=== PATIENT | female | born 1990 | race Two or more races ===

== ENCOUNTER 2023-08-14 12:24 | Emergency (ER) | payer MEDICAID ==
[~2023-08-14] VITALS: Ht 160 cm; Wt 77.7 kg
[2023-08-14] MEDS ORDERED: ONDANSETRON ODT 4 MG TAB PO ONE (13:30)
[2023-08-14] MEDS ORDERED: KETOROLAC TROMETH 60MG/2ML VIAL IM ONE (13:30)
[2023-08-14 14:08] LABS: Basophils # (auto) 0 10 ^3/uL (0-0.2); Basophils % (auto) 0.6 % (0.0-2.0); Eosinophils # (auto) 0 10 ^3/uL (0-0.8); Eosinophils % (auto) 0.3 % (0.0-7.0); Hematocrit 41.6 % (36.0-46.0); Lymphocytes % (auto) 16.2 % (10.0-50.0); Mean Corpuscular Hemoglobin 28.9 pg (28.0-32.0); Mean Corpuscular Hgb Conc. 33.5 g/dL (32.0-36.0); Mean Corpuscular Volume 86.1 fL (80.0-100.0); Monocytes # (auto) 0.2 10 ^3/uL (0-1.3); Monocytes % (auto) 3.6 % (0.0-12.0); Neutrophils # (auto) 4.9 10 ^3/uL (1.6-8.6); Neutrophils % (auto) 79.3 % (37.0-80.0); Nucleated Red Blood Cells % 0.2 %; Red Blood Cells 4.83 10^6/uL (4.0-5.20); Red Cell Distribution Width 12.9 % (11.8-14.3); White Blood Cell 6.2 10^3/uL (4.4-10.8)
[2023-08-14 14:26] LABS: Alanine Aminotransferase 26 U/L (7-40); Albumin 4.4 g/dL (3.2-4.8); Alkaline Phosphatase 56 U/L (46-116); Anion Gap 5 (5-15); Aspartate Aminotransferase 22 U/L (13-40); BUN/Creatinine Ratio 5.9 (10.0-20.0); Bilirubin, Total 0.4 mg/dL (0.2-1.0); Blood Urea Nitrogen 5 mg/dL (9-23); Calcium 9.2 mg/dL (8.7-10.4); Carbon Dioxide 26 mmol/L (20-30); Chloride 107 mmol/L (98-107); Glucose 105 mg/dL (74-106); Lipase 38 U/L (12-53); Sodium 138 mmol/L (136-145); Total Protein 7.5 g/dL (5.7-8.2)
[2023-08-14 14:56] LABS: Urine Amorphous Crystal FEW /hpf (None Seen); Urine Bacteria MANY /hpf (None Seen); Urine Blood 3+ /uL (Negative); Urine Clarity Clear (Clear); Urine Hyaline Cast FEW /lpf (0 - 2); Urine Protein, UAD 1+ (Negative); Urine Specific Gravity 1.017 (1.001-1.035); Urine Urobilinogen Normal (Negative); Urine WBC 61 /hpf (0 - 5)
[2023-08-14 14:57] LABS: Urine Color Yellow (Yellow)
[2023-08-14] MEDS ORDERED: CIPR-173 PO (15:14)
[2023-08-14] MEDS ORDERED: NAP500T PO (15:14)
[2023-08-14] MEDS ORDERED: ZOFR4T PO (15:14)
[2023-08-14 15:23] VITALS: BP 125/75; PULSE 64; RESP 17; TEMP 97.7; O2SAT 100
== END 2023-08-14 15:25 | disposition home or self-care (01) ==
LOC: ER 12:24
DX: N20.0 Calculus of kidney (principal); N39.0 Urinary tract infection, site not specified; Z90.710 Acquired absence of both cervix and uterus
CPT/HCPCS: 36415; 74176; 80053; 81001; 83690; 85025; 96372; 99285; J1885; Q0162

== ENCOUNTER 2024-01-26 21:28 | Emergency (ER) | payer MEDICAID ==
[~2024-01-26] VITALS: Ht 157.5 cm; Wt 81.4 kg
[~2024-01-26 21:28] MED LIST: CIPR-173 PO; NAP500T PO; ZOFR4T PO
[2024-01-26 21:50] VITALS: BP 140/76; PULSE 70; RESP 18; TEMP 98.4
[2024-01-26] MEDS ORDERED: diphenhdrAMINE HCL 50 MG/1 ML VL IM ONE (22:15)
[2024-01-26 23:40] VITALS: O2SAT 99
[2024-01-27] MEDS: DexAMETHasone SOD PHOS 10MG/1ML VIAL INJ IM ONE (00:18)
== END 2024-01-27 00:53 | disposition home or self-care (01) ==
LOC: ER 21:28
DX: T78.40XA Allergy, unspecified, initial encounter (principal); Z79.1 Long term (current) use of non-steroidal anti-inflammatories (NSAID); Z79.899 Other long term (current) drug therapy; Z90.710 Acquired absence of both cervix and uterus; X58.XXXA Exposure to other specified factors, initial encounter
CPT/HCPCS: 96372; 99283; J1100

== ENCOUNTER 2024-06-19 03:56 | Emergency (ER) | payer MEDICAID ==
[~2024-06-19] VITALS: Ht 160 cm; Wt 81.5 kg
[2024-06-19] MEDS: LET TOPICAL SOLN 5 ML TOP ONE (05:08)
[2024-06-19] MEDS: LIDOCAINE 1% HCL (LOCAL ANESTH.) INJ 20ML MDV ID ONE (05:08)
[2024-06-19 05:42] VITALS: BP 124/57; PULSE 78; RESP 18; TEMP 98.9; O2SAT 100
--- NOTE | 2024-06-19 05:43 | ED.PDOC ---
HPI Comments This is a 33-year-old female patient presents to the ED chief complaint lacerations. Patient states glass broke in front of her face pink pieces cut the tip of her left nose in left eyelid. She notes no glass went into her eye does not have foreign body feeling. She denies numbness, weakness, bleeding controlled at this time. Chief Complaint: Laceration Time Seen by MD: 04:03 Primary Care Provider: Unknown Reviewed Notes: Nurses Notes, Medications, Allergies Allergies: Coded Allergies: NO KNOWN ALLERGIES (Unverified , 08/14/23) Home Meds Active Scripts Ondansetron Odt 4MG Tab (ZOFRAN PO) 4 Mg Tb, 4 MG PO Q8HR PRN, #14 TAB ODT TAB-DISSOLVE IN MOUTH, THEN SWALLOW Prov:BARBARA MEADOWS MD 08/14/23 Naproxen (NAPROSYN TABLET) 500 Mg Tb, 1 TAB PO BID PRN, #20 TAB 0 Refills Prov:BARBARA MEADOWS MD 08/14/23 Ciprofloxacin Hcl (Cipro) 500 Mg Tab, 1 TAB PO BID, #14 TAB Prov:BARBARA MEADOWS MD 08/14/23 Information Source: Patient Mode of Arrival: Ambulatory Complexity: Intermediate Laceration Length (cm): 1 Past Medical History PAST MEDICAL HISTORY: Denies Surgical History: Hysterectomy 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 BUTTER 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 History Family History Family History: Reviewed,noncontributory to illness Social History Smoker: Non-Smoker Alcohol: Denies ETOH Use Drugs: Denies Drug Use Lives In: Home Constitutional: denies: chills, diaphoresis, fatigue, fever, malaise, sweats, w eakness, others Respiratory: denies: cough, hemoptysis, orthopnea, SOB at rest, shortness of breath, SOB with excertion, stridor, wheezing, others Cardiovascular: denies: chest pain, dizzy spells, diaphoresis, Dyspnea on exertion, edema, irregular heart beat, left arm pain, lightheadedness, palpitations, PND, syncope, others Gastrointestinal: denies: abdomen distended, abdominal pain, blood streaked bowels, constipated, diarrhea, dysphagia, difficulty swallowing, hematemesis, melena, nausea, poor appetite, poor fluid intake, rectal bleeding, rectal pain, vomiting, others Genitourinary: denies: abnormal vagina bleeding, burning, dyspareunia, dysuria, flank pain, frequency, hematuria, incontinence, pain, , vagina discharge, urgency, others Neurological: denies: dizziness, fainting, headache, left sided numbness, left sided weakness, numbness, paresthesia, pre-existing deficit, right sided numbne ss, right sided weakness, seizure, speech problems, tingling, tremors, weakness, others Musculoskeletal: denies: back pain, gout, joint pain, joint swelling, muscle pain, muscle stiffness, neck pain, others Integumetry: reports: laceration (1.5 cm laceration to tip of nose. 1 cm laceration to left eyelid.); denies: bruises, change in color, change in hair/nails, dryness, lesions, lumps, rash, wounds, others Allergic/Immunocompromised: denies: Difficulty Healing, Frequent Infections, Hives, Itching, others Hematologic/Lymphatic: denies: anemia, blood clots, easy bleeding, easy bruising, swollen glands, others Endocrine: denies: excessive hunger, excessive sweating, excessive thirst, excessive urination, flushing, intolerance to cold, intolerance to heat, unexplained weight gain, unexplained weight loss, others Psychiatric: denies: anxiety, bipolar disorder, depression, hopeless, panic disorder, schizophrenia, sleepless, suicidal, others Physical Exam General Appearance: No Apparent Distress, Normal HEENT: Pharynx Normal Neck: Full Range of Motion, Non-Tender Respiratory: Lungs Clear, No Respiratory Distress, Normal Breath Sounds Cardiovascular: No Murmur, Normal Peripheral Pulses, Regular Rate/Rhythm Breast Exam: Deferred Gastrointestinal: Non Tender, Soft Genitalia: Deferred Pelvic: Deferred Rectal: Deferred Extremities: Normal capillary refill, Normal inspection, Normal range of motion, Non-tender Musculoskeletal : Apperance: Normal Neurologic: Alert, purification supervisor II-XII nml as Tested, No Motor Deficits, Normal Affect, Normal Mood, No Sensory Deficits Cerebellar Function: Normal Reflexes: Normal Skin: Lacerations (1.5 cm laceration to tip of nose. 1 cm laceration to left eyelid. Bleeding controlled no noted foreign bodies) Lymphatic: No Adenopathy Was a procedure done? Was a procedure done?: Yes Sedation Sedation?: No Informed consent obtained: Yes Laceration Repair : Location Left side tip of nose. Left lateral eyelid Length 1.5 cm laceration on the nose. 1 cm laceration noted left eyebrow Anesthetic: LET, Lidocaine Laceration Repair Prep: Saline, Betadine Laceration Repair Wound Comple: epidermis/dermis repair Laceration Repair: Number of sutures, Simple Informed consent obtained: Yes Risks, benefits, and alternati: Yes (Three absorbable sutures in the nose. Absorbable sutures in the left eyelid) Notes Patient tolerated procedure well minimal blood loss. Differential diagnosis Generic Laceration: Laceration, Avulsion X-Ray, Labs, Meds, VS Vital Signs Date Time Temp Pulse Resp B/P (MAP) Pulse Ox O2 Delivery O2 Flow Rate FiO2 06/19/24 05:42 98.9 78 18 124/57 (79) 100 98.9 06/19/24 05:42 78 18 100 Room Air 06/19/24 04:05 99.0 91 16 122/80 (94) 98 X-Ray, Labs, Meds, VS Comment See procedure note. Advised patient to follow up with her PCP or urgent care for wound re-evaluation in 3-4 days. ER return precautions given. Suture removal not needed absorbable sutures used. ER return precautions given. Patient indicated understanding and agrees with discharge plan of care. Time of 1ST Reevaluation: 05:42 Reevaluation 1ST: Improved Patient Education/Counseling: Diagnosis, Treatment, Prognosis, Need For Follow Up Family Education/Counseling: No Family Present Departure 1 Departure Time of Disposition: 05:42 Impression: Primary Impression: Laceration Disposition: 01 HOME / SELF CARE / HOMELESS Condition: Stable Discharged With: Self Critical Care Note Critical Care Time?: No Stability Stability form required: BRANDIN Daniels Jun 19, 2024 05:43
== END 2024-06-19 06:17 | disposition home or self-care (01) ==
LOC: ER 03:56
DX: S01.21XA Laceration without foreign body of nose, initial encounter (principal); S01.112A Laceration without foreign body of left eyelid and periocular area, initial encounter; Z90.710 Acquired absence of both cervix and uterus; Z79.899 Other long term (current) drug therapy; W25.XXXA Contact with sharp glass, initial encounter; Y93.89 Activity, other specified; Y92.89 Other specified places as the place of occurrence of the external cause; Y99.8 Other external cause status
CPT/HCPCS: 12011; 99282; J2003

== ENCOUNTER 2024-06-28 09:50 | Emergency (ER) | payer MEDICAID ==
[~2024-06-28] VITALS: Ht 160 cm; Wt 81.6 kg
[2024-06-28 10:28] VITALS: BP 155/93; PULSE 65; RESP 16; TEMP 97.8; O2SAT 100
--- NOTE | 2024-06-28 11:41 | ED.PDOC ---
History of Present Illness HPI Comments This is a 33-year-old female who comes in with chief complaint of needing sutures removed. The patient has suffered lacerations to her nasal area and left facial area on 06/18. The patient denies any other complaints at this time. The patient states that she is here for sutures to be removed. Chief Complaint: Wound Check Time Seen by MD: 10:09 Primary Care Provider: Unknown Reviewed Notes: Nurses Notes, Medications, Allergies (No allergies to medications) Allergies: Coded Allergies: NO KNOWN ALLERGIES (Unverified , 08/14/23) Home Meds Active Scripts Ondansetron Odt 4MG Tab (ZOFRAN PO) 4 Mg Tb, 4 MG PO Q8HR PRN, #14 TAB ODT TAB-DISSOLVE IN MOUTH, THEN SWALLOW Prov:BARBARA MEADOWS MD 08/14/23 Naproxen (NAPROSYN TABLET) 500 Mg Tb, 1 TAB PO BID PRN, #20 TAB 0 Refills Prov:BARBARA MEADOWS MD 08/14/23 Ciprofloxacin Hcl (Cipro) 500 Mg Tab, 1 TAB PO BID, #14 TAB Prov:BARBARA MEADOWS MD 08/14/23 Information Source: Patient Mode of Arrival: Ambulatory Severity: Mild Timing: Days Duration: Since onset Prehospital treatment: None Associated signs and symptoms No associated symptoms of chest pain or shortness for breath Past Medical History PAST MEDICAL HISTORY: Denies Surgical History: Hysterectomy EDUCATION ADVISER History: No Pertinent EDUCATION ADVISER History Family History Family History: Reviewed,noncontributory to illness Social History Smoker: Non-Smoker Alcohol: Occasionally Drugs: Denies Drug Use Lives In: Home Constitutional: denies: chills, diaphoresis, fatigue, fever, malaise, sweats, weakness, others EENTM: denies: blurred vision, double vision, ear bleeding, ear discharge, ear drainage, ear pain, ear ringing, eye pain, eye redness, hearing loss, mouth pain, mouth swelling, nasal discharge, nose bleeding, nose congestion, nose pain, photophobia, tearing, throat pain, throat swelling, voice changes, others Respiratory: denies: cough, hemoptysis, orthopnea, SOB at rest, shortness of breath, SOB with excertion, stridor, wheezing, others Cardiovascular: denies: chest pain, dizzy spells, diaphoresis, Dyspnea on exertion, edema, irregular heart beat, left arm pain, lightheadedness, palpitations, PND, syncope, others Gastrointestinal: denies: abdomen distended, abdominal pain, blood streaked bowels, constipated, diarrhea, dysphagia, difficulty swallowing, hematemesis, melena, nausea, poor appetite, poor fluid intake, rectal bleeding, rectal pain, vomiting, others Genitourinary: denies: abnormal vagina bleeding, burning, dyspareunia, dysuria, flank pain, frequency, hematuria, incontinence, pain, , vagina discharge, urgency, others Neurological: denies: dizziness, fainting, headache, left sided numbness, left sided weakness, numbness, paresthesia, pre-existing deficit, right sided numbness, right sided weakness, seizure, speech problems, tingling, tremors, weakness, others Musculoskeletal: denies: back pain, gout, joint pain, joint swelling, muscle pain, muscle stiffness, neck pain, others Integumetry: reports: others (Sutures in place to the left nasal area and left of the eye); denies: bruises, change in color, change in hair/nails, dryness, laceration, lesions, lumps, rash, wounds Allergic/Immunocompromised: denies: Difficulty Healing, Frequent Infections, Hives, Itching, others Hematologic/Lymphatic: denies: anemia, blood clots, easy bleeding, easy bruising, swollen glands, others Endocrine: denies: excessive hunger, excessive sweating, excessive thirst, excessive urination, flushing, intolerance to cold, intolerance to heat, unexplained weight gain, unexplained weight loss, others Psychiatric: denies: anxiety, bipolar disorder, depression, hopeless, panic disorder, schizophrenia, sleepless, suicidal, others Physical Exam General Appearance: No Apparent Distress HEENT: Normal ENT Inspection, Pharynx Normal, TMs Normal Neck: Full Range of Motion, Non-Tender, Normal, Normal Inspection Respiratory: Chest Non-Tender, Lungs Clear, No Accessory Muscle Use, No Respiratory Distress, Normal Breath Sounds Cardiovascular: No Edema, No JVD, No Murmur, No Gallop, Normal Peripheral Pulses, Regular Rate/Rhythm Breast Exam: Deferred Gastrointestinal: No Organomegaly, Non Tender, No Pulsatile Mass, Normal Bowel Sounds, Soft Genitalia: Deferred Pelvic: Deferred Rectal: Deferred Extremities: No calf tenderness, Normal capillary refill, Normal inspection, Normal range of motion, Non-tender, No pedal edema Musculoskeletal : Apperance: Normal Neurologic: Alert, dross puller II-XII nml as Tested, No Motor Deficits, Normal Affect, Normal Mood, No Sensory Deficits Cerebellar Function: Normal Reflexes: Normal Skin: Dry, Normal Color, Warm, Other (Sutures in place to the facial area) Lymphatic: No Adenopathy Was a procedure done? Was a procedure done?: No Differential Dx Considerations may include: Suture removal, laceration X-Ray, Labs, Meds, VS Vital Signs Date Time Temp Pulse Resp B/P (MAP) Pulse Ox O2 Delivery O2 Flow Rate FiO2 06/28/24 10:28 65 16 100 Room Air 06/28/24 10:28 97.8 65 16 155/93 (113) 100 97.8 06/28/24 10:14 97.8 65 16 155/93 (113) 100 At this time, the patient was being discharged with a diagnosis of suture removal The sutures were removed without any complications The patient will follow up with the primary care doctor The patient will return to the emergency department's condition worsens. Time of 1ST Reevaluation: 11:40 Reevaluation 1ST: Improved Patient Education/Counseling: Diagnosis, Treatment, Prognosis, Need For Follow Up Family Education/Counseling: No Family Present Departure 1 Departure Time of Disposition: 11:40 Impression: Primary Impression: Visit for suture removal Disposition: 01 HOME / SELF CARE / HOMELESS Condition: Fair Discharged With: Self Critical Care Note Critical Care Time?: No Stability Stability form required: No Heart Score Heart Score: Heart Score Response (Comments) Value History N/A 0 EKG N/A 0 Age N/A 0 Risk Factors N/A 0 Troponin N/A 0 Total 0 MARK VEGA MD Jun 28, 2024 11:41
== END 2024-06-28 11:41 | disposition home or self-care (01) ==
LOC: ER 09:50
DX: S01.81XD Laceration without foreign body of other part of head, subsequent encounter (principal); Z48.02 Encounter for removal of sutures; Z90.710 Acquired absence of both cervix and uterus; Z79.899 Other long term (current) drug therapy; X58.XXXD Exposure to other specified factors, subsequent encounter

== ENCOUNTER 2024-07-16 01:51 | Emergency (ER) | payer MEDICAID ==
[~2024-07-16] VITALS: Ht 160 cm; Wt 78.9 kg
[2024-07-16 04:00] VITALS: BP 120/81; PULSE 75; RESP 17; TEMP 98.2; O2SAT 100
[2024-07-16] MEDS ORDERED: CLOT1CRE51 EXT (04:22)
--- NOTE | 2024-07-16 04:22 | ED.PDOC ---
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 Patient states rash started 3 days ago to her rectal perineal area she also reports white vaginal discharge. Notes possible exposure to STD. Denies fevers, chills, nausea, vomiting, vaginal bleeding spotting of . Chief Complaint: Rash Time Seen by MD: 01:55 Reviewed Notes: Nurses Notes, Medications, Allergies Allergies: Coded Allergies: NO KNOWN ALLERGIES (Unverified , 08/14/23) Home Meds Active Scripts Azithromycin (Azithromycin) 500 Mg Tab, 2 TAB PO ONCE for 1 Day, #2 TAB Prov:BRANDIN WORTHINGTON 07/16/24 Clotrimazole (Clotrimazole) 1 % Cre, 1 APPLIC EXT BID for 7 Days, #15 GRAMS Prov:BRANDIN WORTHINGTON 07/16/24 Ondansetron Odt 4MG Tab (ZOFRAN PO) 4 Mg Tb, 4 MG PO Q8HR PRN, #14 TAB ODT TAB-DISSOLVE IN MOUTH, THEN SWALLOW Prov:BARBARA MEADOWS MD 08/14/23 Naproxen (NAPROSYN TABLET) 500 Mg Tb, 1 TAB PO BID PRN, #20 TAB 0 Refills Prov:BARBARA MEADOWS MD 08/14/23 Ciprofloxacin Hcl (Cipro) 500 Mg Tab, 1 TAB PO BID, #14 TAB Prov:BARBARA MEADOWS MD 08/14/23 Past Medical History PAST MEDICAL HISTORY: Denies Surgical History: Hysterectomy 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 SOURCING MANAGER 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: No 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 SOURCING MANAGER History Family History Family History: Reviewed,noncontributory to illness Social History Smoker: Non-Smoker Alcohol: Occasionally Drugs: Denies Drug Use Lives In: Home Constitutional: denies: chills, diaphoresis, fatigue, fever, malaise, sweats, weakness, others EENTM: denies: blurred vision, double vision, ear bleeding, ear discharge, ear drainage, ear pain, ear ringing, eye pain, eye redness, hearing loss, mouth pain, mouth swelling, nasal discharge, nose bleeding, nose congestion, nose p ain, photophobia, tearing, throat pain, throat swelling, voice changes, others Respiratory: denies: cough, hemoptysis, orthopnea, SOB at rest, shortness of breath, SOB with excertion, stridor, wheezing, others Cardiovascular: denies: chest pain, dizzy spells, diaphoresis, Dyspnea on exertion, edema, irregular heart beat, left arm pain, lightheadedness, palpitations, PND, syncope, others Gastrointestinal: denies: abdomen distended, abdominal pain, blood streaked bowels, constipated, diarrhea, dysphagia, difficulty swallowing, hematemesis, melena, nausea, poor appetite, poor fluid intake, rectal bleeding, rectal pain, vomiting, others Genitourinary: reports: vagina discharge; denies: abnormal vagina bleeding, burning, dyspareunia, dysuria, flank pain, frequency, hematuria, incontinence, pain, , urgency, others Neurological: denies: dizziness, fainting, headache, left sided numbness, left sided weakness, numbness, paresthesia, pre-existing deficit, right sided numbness, right sided weakness, seizure, speech problems, tingling, tremors, weakness, others Musculoskeletal: denies: back pain, gout, joint pain, joint swelling, muscle pain, muscle stiffness, neck pain, others Integumetry: denies: bruises, change in color, change in hair/nails, dryness, laceration, lesions, lumps, rash, wounds, others Allergic/Immunocompromised: denies: Difficulty Healing, Frequent Infections, Hives, Itching, others Hematologic/Lymphatic: denies: anemia, blood clots, easy bleeding, easy bruising, swollen glands, others Endocrine: denies: excessive hunger, excessive sweating, excessive thirst, excessive urination, flushing, intolerance to cold, intolerance to heat, unexpl ained weight gain, unexplained weight loss, others Psychiatric: denies: anxiety, bipolar disorder, depression, hopeless, panic disorder, schizophrenia, sleepless, suicidal, others Physical Exam General Appearance: No Apparent Distress, Normal HEENT: Pharynx Normal Neck: Full Range of Motion, Non-Tender Respiratory: Lungs Clear, No Respiratory Distress, Normal Breath Sounds Cardiovascular: No Murmur, Normal Peripheral Pulses, Regular Rate/Rhythm Breast Exam: Deferred Gastrointestinal: Non Tender, Soft Genitalia: Deferred Pelvic: Discharge (White been vaginal discharge), No cerv. Motion Tender Rectal: Deferred Extremities: No calf tenderness, Normal capillary refill, Normal inspection, Normal range of motion, Non-tender, No pedal edema Musculoskeletal : Apperance: Normal Neurologic: Alert, power barker operator II-XII nml as Tested, No Motor Deficits, Normal Affect, Normal Mood, No Sensory Deficits Cerebellar Function: Normal Reflexes: Normal Skin: Dry, Normal Color, Rash (Erythemic raw rash noted to perineum area to the gluteal folds), Warm Lymphatic: No Adenopathy Was a procedure done? Was a procedure done?: Yes Sedation Sedation?: No Informed consent obtained: Yes Other Procedure Informed consent obtained: Yes Risks, benefits, and alternati: Yes X-Ray, Labs, Meds, VS Vital Signs Date Time Temp Pulse Resp B/P (MAP) Pulse Ox O2 Delivery O2 Flow Rate FiO2 07/16/24 04:00 75 17 100 Room Air 07/16/24 04:00 98.2 75 17 120/81 (94) 100 98.2 07/16/24 02:13 98.2 80 16 143/75 (97) 99 Lab Test 07/16/24 04:43 Range/Units Urine Color Pending Urine Clarity Pending Urine pH Pending Urine Specific [place] Pending Urine Protein Pending Urine Ketones Pending Urine Blood Pending Urine Nitrite Pending Urine Bilirubin Pending Urine Urobilinogen Pending Urine Leukocyte Esterase Pending Urine RBC Pending Urine WBC Pending Urine Squamous Epithelial Cells Pending Urine Bacteria Pending Urine Glucose Pending Current Medications Medications (Trade) Dose Ordered Sig/Laura Route Start Time Stop Time Status Last Admin Fluconazole (Diflucan Tablet) 200 mg ONCE ONCE PO 07/16/24 04:30 07/16/24 04:31 DC 07/16/24 04:29 Time of 1ST Reevaluation: 04:22 Reevaluation 1ST: Unchanged Patient Education/Counseling: Diagnosis, Treatment, Prognosis, Need For Follow Up Family Education/Counseling: No Family Present Departure 1 Departure Time of Disposition: 04:22 Impression: Primary Impression: Possible exposure to STD Additional Impression: Vaginitis Qualified Codes: N76.0 - Acute vaginitis Disposition: 01 HOME / SELF CARE / HOMELESS Condition: Stable e-Prescriptions Azithromycin (Azithromycin) 500 Mg Tab 2 TAB PO ONCE for 1 Day, #2 TAB Prov: BRANDIN WORTHINGTON 07/16/24 Clotrimazole (Clotrimazole) 1 % Cre 1 APPLIC EXT BID for 7 Days, #15 GRAMS Prov: BRANDIN WORTHINGTON 1/2/25 Discharged With: Self Critical Care Note Critical Care Time?: No Stability Stability form required: BRANDIN Daniels Jul 16, 2024 04:22
[2024-07-16] MEDS: FLUCONAZOLE 100 MG TAB PO ONE (04:29)
[2024-07-16] MEDS ORDERED: cefTRIAXone SOD 1,000 MG VL IM ONE (04:30)
[2024-07-16] MEDS ORDERED: AZITHROMYCIN 250 MG TAB PO ONE (04:30)
[2024-07-16 04:44] LABS: Urine Bacteria None Seen /hpf (None Seen)
[2024-07-16] MEDS ORDERED: AZIT500T66 PO (04:45)
[2024-07-16 05:09] LABS: Urine Blood Negative /uL (Negative); Urine Clarity Clear (Clear); Urine Color Light-Yellow (Yellow); Urine Protein, UAD Negative (Negative); Urine Specific Gravity 1.018 (1.001-1.035); Urine Squamous Epithelial Cell FEW /hpf (<5); Urine Urobilinogen Normal (Negative); Urine WBC 2 /hpf (0 - 5); Urine pH 5.5 (5.0-9.0)
== END 2024-07-16 04:53 | disposition home or self-care (01) ==
LOC: ER 01:51
DX: N76.0 Acute vaginitis (principal); Z20.2 Contact with and (suspected) exposure to infections with a predominantly sexual mode of transmission; Z90.710 Acquired absence of both cervix and uterus; Z79.899 Other long term (current) drug therapy
CPT/HCPCS: 81001; J0696

== ENCOUNTER 2024-07-22 17:53 | Emergency (ER) | payer MEDICAID, OTHER ==
[~2024-07-22] VITALS: Ht 160 cm; Wt 79.0 kg
[~2024-07-22 17:53] MED LIST changes: +CLOT1CRE51 EXT
[2024-07-22 18:15] VITALS: BP 125/43; PULSE 75; RESP 16; O2SAT 97
[2024-07-22 20:09] LABS: Urine Bacteria None Seen /hpf (None Seen)
--- NOTE | 2024-07-22 20:51 | ED.PDOC ---
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 PATIENT STATES THAT SHE HAS BEEN EXPERIENCING A "DARK" 5/10 ITCHY/BURNING VAGINAL RASH WITH ASSOCIATED CREAMY WHITE VAGINAL DISCHARGE X 9 DAYS. NOTES SHE WAS SEEN BY A PROVIDER 9 DAYS AGO AT ONSET OF SYMPTOMS AND WAS GIVEN "2 SHOTS" ALONG WITH "A FULL PANEL" OF STD TESTS DONE AT THAT TIME THAT CAME BACK UNREMARKABLE. NOTES THAT SHE WAS ALSO SEEN IN ER HERE 6 DAYS AGO FOR HER SYMPT OMS AND WAS DIAGNOSED WITH A YEAST INFECTION AT THAT TIME AND WAS GIVEN FLUCONAZOLE ALONG WITH PRESCRIBED A TOPICAL CREAM THAT SHE STATES HAS GIVEN HER SOME RELIEF BUT HIS CONCERN THAT SHE STILL IS EXPERIENCING SYMPTOMS PROMPTING HER TO COME BACK TO ER FOR FURTHER EVALUATION. DENIES BEING SEXUALLY ACTIVE SINCE ONSET OF SYMPTOMS. DENIES FEVER, BODY ACHES, CHILLS, FATIGUE, NIGHT SWEATS, ABDOMINAL/PELVIC PAIN, BACK/FLANK PAIN, FURTHER CHANGES IN URINATION OR ANY FURTHER SYMPTOMS/COMPLAINTS Chief Complaint: Vaginal Discharge Time Seen by MD: 18:59 Primary Care Provider: UNKNOWN Reviewed Notes: Nurses Notes, Medications, Allergies Allergies: Coded Allergies: NO KNOWN ALLERGIES (Unverified , 08/14/23) Home Meds Active Scripts Clotrimazole (Clotrimazole) 1 % Cre, 1 APPLIC EXT BID for 7 Days, #15 GRAMS Prov:BRANDIN WORTHINGTON 07/16/24 Ondansetron Odt 4MG Tab (ZOFRAN PO) 4 Mg Tb, 4 MG PO Q8HR PRN, #14 TAB ODT TAB-DISSOLVE IN MOUTH, THEN SWALLOW Prov:BARBARA MEADOWS MD 08/14/23 Naproxen (NAPROSYN TABLET) 500 Mg Tb, 1 TAB PO BID PRN, #20 TAB 0 Refills Prov:BARBARA MEADOWS MD 08/14/23 Ciprofloxacin Hcl (Cipro) 500 Mg Tab, 1 TAB PO BID, #14 TAB Prov:BARBARA MEADOWS MD 08/14/23 Discontinued Scripts Metronidazole (Metronidazole) 500 Mg Tab, 500 MG PO BID for 7 Days, #14 TAB 0 Refills Prov:ADÁN KIM 07/22/24 Azithromycin (Azithromycin) 500 Mg Tab, 2 TAB PO ONCE for 1 Day, #2 TAB Prov:BRANDIN WORTHINGTON 1/2/25 Information Source: Patient Past Medical History PAST MEDICAL HISTORY: Denies Surgical History: Hysterectomy MANAGER FOOD SAFETY History: No Pertinent MANAGER FOOD SAFETY History Family History Family History: Unknown Social History Smoker: Non-Smoker Alcohol: Occasionally Drugs: Denies Drug Use Lives In: Home Constitutional: denies: chills, diaphoresis, fatigue, fever, malaise, sweats, w eakness, others EENTM: denies: blurred vision, double vision, ear bleeding, ear discharge, ear drainage, ear pain, ear ringing, eye pain, eye redness, hearing loss, mouth pain, mouth swelling, nasal discharge, nose bleeding, nose congestion, nose pain, photophobia, tearing, throat pain, throat swelling, voice changes, others Respiratory: denies: cough, hemoptysis, orthopnea, SOB at rest, shortness of breath, SOB with excertion, stridor, wheezing, others Cardiovascular: denies: chest pain, dizzy spells, diaphoresis, Dyspnea on exertion, edema, irregular heart beat, left arm pain, lightheadedness, palpitations, PND, syncope, others Gastrointestinal: denies: abdomen distended, abdominal pain, blood streaked bowels, constipated, diarrhea, dysphagia, difficulty swallowing, hematemesis, melena, nausea, poor appetite, poor fluid intake, rectal bleeding, rectal pain, vomiting, others Genitourinary: reports: others ( STATED IN HPI) Neurological: denies: dizziness, fainting, headache, left sided numbness, left sided weakness, numbness, paresthesia, pre-existing deficit, right sided numbness, right sided weakness, seizure, speech problems, tingling, tremors, weakness, others Musculoskeletal: denies: back pain, gout, joint pain, joint swelling, muscle pain, muscle stiffness, neck pain, others Integumetry: reports: others ( STATED IN HPI) Allergic/Immunocompromised: denies: Difficulty Healing, Frequent Infections, Hives, Itching, others Hematologic/Lymphatic: denies: anemia, blood clots, easy bleeding, easy bruisi ng, swollen glands, others Endocrine: denies: excessive hunger, excessive sweating, excessive thirst, exce ssive urination, flushing, intolerance to cold, intolerance to heat, unexplained weight gain, unexplained weight loss, others Psychiatric: denies: anxiety, bipolar disorder, depression, hopeless, panic disorder, schizophrenia, sleepless, suicidal, others Physical Exam General Appearance: No Apparent Distress, Obese HEENT: PERRL/EOMI, Pharynx Normal Neck: Full Range of Motion, Non-Tender, Normal Respiratory: Chest Non-Tender, Lungs Clear, No Accessory Muscle Use, No Respiratory Distress, Normal Breath Sounds Cardiovascular: No Murmur, No Gallop, Regular Rate/Rhythm Breast Exam: Deferred Gastrointestinal: NOT DONE Genitalia: Deferred Pelvic: Other (NO RASH/SKIN CHANGES APPRECIATED. NO VAGINAL DISCHARGE NOTED. PELVIC EXAMINATION-UNREMARKABLE) Rectal: Deferred Extremities: Normal capillary refill, Normal range of motion Neurologic: Alert, No Motor Deficits, Normal Affect, Normal Mood, No Sensory Deficits Cerebellar Function: Normal Reflexes: Normal Skin: Dry, Warm Peripheral Pulses: 2+ Radial (R), 2+ Radial (L), 2+ Brachial (R), 2+ Brachial (L) Lymphatic: No Adenopathy Was a procedure done? Was a procedure done?: No Sedation Sedation?: No Differential Diagnosis (MANAGER FOOD SAFETY) Vaginal Bleeding: PID Vaginal Discharge: UTI, Other (STD) X-Ray, Labs, Meds, VS Vital Signs Date Time Temp Pulse Resp B/P (MAP) Pulse Ox O2 Delivery O2 Flow Rate FiO2 07/22/24 18:15 98.8 75 16 125/43 (70) 97 Lab Test 07/22/24 21:10 07/22/24 20:01 Range/Units Vaginal WBC (Wet Prep) Rare Vaginal RBC (Wet Prep) None seen Vaginal Epithelial Cells (Wet Prep) None seen Vaginal Bacteria (Wet Prep) None seen Vaginal Trichomonas (Wet Prep) Not present Vaginal Yeast (Wet Prep) None seen Vaginal Clue Cells (Wet Prep) None seen Urine Color Light-yellow Yellow Urine Clarity Turbid H Clear Urine pH 6.0 5.0-9.0 Urine Specific Mcnary 1.025 1.001-1.035 Urine Protein Negative Negative Urine Ketones Trace Negative Urine Blood Negative Negative /uL Urine Nitrite Negative Negative Urine Bilirubin Negative Negative Urine Urobilinogen 4 H Negative mg/dL Urine Leukocyte Esterase Negative Negative /uL Urine RBC 1 0 - 4 /hpf Urine WBC 1 0 - 5 /hpf Urine Squamous Epithelial Cells Mod <5 /hpf Urine Bacteria None seen None Seen /hpf Urine Mucus Few None Seen Urine Glucose Normal Normal mg/dL Urine Test Negative Negative Chlamydia trachomatis (OSIEL) Pending Neisseria gonorrhoeae (OSIEL) Pending URINE REVIEWED-NEGATIVE URINALYSIS REVIEWED WITHOUT ANY SIGNIFICANT ABNORMALITIES WET MOUNT REVIEWED-UNREMARKABLE GONORRHEA/CHLAMYDIA AMPLIFICATION TEST ORDERED ADVISED TO FOLLOW UP WITH PCP AND LEAD TEACHER IN 1-2 DAYS PATIENT VERBALIZED UNDERSTANDING AND AGREEABLE WITH CURRENT PLAN OF CARE ADVISED TO RETURN TO ER IMMEDIATELY IF SYMPTOMS WORSEN Time of 1ST Reevaluation: 20:50 Reevaluation 1ST: N/A Patient Education/Counseling: Diagnosis, Treatment, Prognosis, Need For Follow Up Family Education/Counseling: No Family Present Departure 1 Departure Time of Disposition: 22:12 Impression: Primary Impression: Vaginitis Qualified Codes: N76.0 - Acute vaginitis Disposition: HOME / SELF CARE / HOMELESS Condition: Stable e-Prescriptions Clotrimazole (Clotrimazole) 1 % Cre 1 APPLIC EXT BID for 7 Days, #15 GRAMS Prov: ADÁN KIM 07/22/24 Discharged With: Self Critical Care Note Critical Care Time?: No Stability Stability form required: No Heart Score Heart Score: Heart Score Response (Comments) Value History N/A 0 EKG N/A 0 Age N/A 0 Risk Factors N/A 0 Troponin N/A 0 Total 0 ADÁN KIM Jul 22, 2024 20:51
[2024-07-22] MEDS ORDERED: MET500T PO (21:12)
[2024-07-22 21:18] LABS: Urine Blood Negative /uL (Negative); Urine Clarity Turbid (Clear); Urine Color Light-Yellow (Yellow); Urine Mucus FEW (None Seen); Urine Protein, UAD Negative (Negative); Urine Specific Gravity 1.025 (1.001-1.035); Urine Squamous Epithelial Cell MOD /hpf (<5); Urine Urobilinogen 4 mg/dL (Negative); Urine WBC 1 /hpf (0 - 5)
[2024-07-22 22:07] LABS: Vaginal Bacteria None Seen; Vaginal Trichomonas Not Present
[2024-07-22 22:08] LABS: Vaginal Clue Cells None Seen; Vaginal Epithelial Cells None Seen
[2024-07-22] MEDS ORDERED: CLOT1CRE51 EXT (22:24)
[2024-07-24 14:06] LABS: Chlamydia Trachomatis, NAA Negative (Negative); Neisseria gonorrhoeae, NAA Negative (Negative)
== END 2024-07-22 22:25 | disposition home or self-care (01) ==
LOC: ER 17:53
DX: N76.0 Acute vaginitis (principal); Z32.02 Encounter for pregnancy test, result negative; Z90.710 Acquired absence of both cervix and uterus; Z79.899 Other long term (current) drug therapy
CPT/HCPCS: 81001; 81025; 87210

== ENCOUNTER 2024-08-12 08:21 | Emergency (ER) | payer MEDICAID ==
[~2024-08-12] VITALS: Ht 177.8 cm; Wt 79.5 kg
[2024-08-12] MEDS ORDERED: GENT0.3S10 EACHEYE (08:43)
--- NOTE | 2024-08-12 08:43 | ED.PDOC ---
History of Present Illness HPI Comments 33-year-old female came in because of irritation in her eyes for the past two weeks. She is able to do her usual duties. Denies any head trauma. Denies headache dizziness. Denies any other symptoms. Chief Complaint: Eye Problem Time Seen by MD: 08:30 Primary Care Provider: UNKNOWN Reviewed Notes: Nurses Notes, Medications, Allergies Allergies: Coded Allergies: NO KNOWN ALLERGIES (Unverified , 08/14/23) Home Meds Active Scripts Gentamicin Sulfate (Gentamicin Sulfate) 0.3 % Sima, 1 DROP EACHEYE QID PRN for 5 Days, #5 ML Prov:DIANA ZAPATA MD 08/12/24 Clotrimazole (Clotrimazole) 1 % Cre, 1 APPLIC EXT BID for 7 Days, #15 GRAMS Prov:ADÁN KIM 07/22/24 Ondansetron Odt 4MG Tab (ZOFRAN PO) 4 Mg Tb, 4 MG PO Q8HR PRN, #14 TAB ODT TAB-DISSOLVE IN MOUTH, THEN SWALLOW Prov:BARBARA MEADOWS MD 08/14/23 Naproxen (NAPROSYN TABLET) 500 Mg Tb, 1 TAB PO BID PRN, #20 TAB 0 Refills Prov:BARBARA MEADOWS MD 08/14/23 Ciprofloxacin Hcl (Cipro) 500 Mg Tab, 1 TAB PO BID, #14 TAB Prov:BARBARA MEADOWS MD 08/14/23 Information Source: Patient Mode of Arrival: Ambulatory Severity: Mild Timing: Weeks Duration: Since onset Past Medical History PAST MEDICAL HISTORY: Denies Surgical History: Hysterectomy COMPONENT ENGINEER History: No Pertinent COMPONENT ENGINEER History Family History Family History: Unknown Social History Smoker: Non-Smoker Alcohol: Occasionally Drugs: Denies Drug Use Lives In: Home Constitutional: denies: chills, diaphoresis, fatigue, fever, malaise, sweats, weakness, others EENTM: reports: others (Eye irritation); denies: blurred vision, double vision, ear bleeding, ear discharge, ear drainage, ear pain, ear ringing, eye pain, eye redness, hearing loss, mouth pain, mouth swelling, nasal discharge, nose bleeding, nose congestion, nose pain, photophobia, tearing, throat pain, throat swelling, voice changes Respiratory: denies: cough, hemoptysis, orthopnea, SOB at rest, shortness of breath, SOB with excertion, stridor, wheezing, others Cardiovascular: denies: chest pain, dizzy spells, diaphoresis, Dyspnea on exertion, edema, irregular heart beat, left arm pain, lightheadedness, palpitations, PND, syncope, others Gastrointestinal: denies: abdomen distended, abdominal pain, blood streaked bowels, constipated, diarrhea, dysphagia, difficulty swallowing, hematemesis, melena, nausea, poor appetite, poor fluid intake, rectal bleeding, rectal pain, vomiting, others Genitourinary: denies: abnormal vagina bleeding, burning, dyspareunia, dysuria, flank pain, frequency, hematuria, incontinence, pain, , vagina discharge, urgency, others Neurological: denies: dizziness, fainting, headache, left sided numbness, left sided weakness, numbness, paresthesia, pre-existing deficit, right sided numbness, right sided weakness, seizure, speech problems, tingling, tremors, weakness, others Musculoskeletal: denies: back pain, gout, joint pain, joint swelling, muscle pain, muscle stiffness, neck pain, others Integumetry: denies: bruises, change in color, change in hair/nails, dryness, laceration, lesions, lumps, rash, wounds, others Allergic/Immunocompromised: denies: Difficulty Healing, Frequent Infections, Hives, Itching, others Hematologic/Lymphatic: denies: anemia, blood clots, easy bleeding, easy bruising, swollen glands, others Endocrine: denies: excessive hunger, excessive sweating, excessive thirst, excessive urination, flushing, intolerance to cold, intolerance to heat, unexplained weight gain, unexplained weight loss, others Psychiatric: denies: anxiety, bipolar disorder, depression, hopeless, panic disorder, schizophrenia, sleepless, suicidal, others Physical Exam General Appearance: Moderate Distress HEENT: Normal ENT Inspection, Pharynx Normal, TMs Normal Neck: Full Range of Motion, Non-Tender, Normal, Normal Inspection Respiratory: Chest Non-Tender, Lungs Clear, No Accessory Muscle Use, No Respir atory Distress, Normal Breath Sounds Cardiovascular: No Edema, No JVD, No Murmur, No Gallop, Normal Peripheral Pulses, Regular Rate/Rhythm Breast Exam: Deferred Gastrointestinal: No Organomegaly, Non Tender, No Pulsatile Mass, Normal Bowel Sounds, Soft Genitalia: Deferred Pelvic: Deferred Rectal: Deferred Extremities: No calf tenderness, Normal capillary refill, Normal inspection, Normal range of motion, Non-tender, No pedal edema Musculoskeletal : Apperance: Normal Neurologic: Alert, 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 Was a procedure done?: No Differential Dx Considerations may include: Conjunctivitis Viral illness X-Ray, Labs, Meds, VS Vital Signs Date Time Temp Pulse Resp B/P (MAP) Pulse Ox O2 Delivery O2 Flow Rate FiO2 08/12/24 08:59 97.9 74 19 156/73 (100) 99 97.9 08/12/24 08:59 74 19 99 Room Air 08/12/24 08:38 97.9 74 19 156/73 (100) 99 Lab Test 08/12/24 08:33 Range/Units POC Glucose 90 70-106 mg/dl Patient alert. Eye irritation. Vitals stable. Answering questions. On examination no sign of any distress. Abdomen is soft nontender. Ambulating. Explained to the patient. Told to follow up with her primary care physician. Was told to come back if there is any problem. Time of 1ST Reevaluation: 08:41 Reevaluation 1ST: Unchanged Patient Education/Counseling: Diagnosis, Treatment, Prognosis, Need For Follow Up Family Education/Counseling: No Family Present Departure 1 Departure Time of Disposition: 08:42 Impression: Primary Impression: Conjunctivitis Qualified Codes: H10.30 - Unspecified acute conjunctivitis, unspecified eye Disposition: 01 HOME / SELF CARE / HOMELESS Condition: Good e-Prescriptions Gentamicin Sulfate (Gentamicin Sulfate) 0.3 % Sima 1 DROP EACHEYE QID PRN for 5 Days, #5 ML Prov: DIANA ZAPATA MD 08/12/24 Discharged With: Self Critical Care Note Critical Care Time?: No Stability Stability form required: No Heart Score Heart Score: Heart Score Response (Comments) Value History N/A 0 EKG N/A 0 Age N/A 0 Risk Factors N/A 0 Troponin N/A 0 Total 0 DIANA ZAPATA MD Aug 12, 2024 08:43
[2024-08-12 08:59] VITALS: BP 156/73; PULSE 74; RESP 19; TEMP 97.9; O2SAT 99
== END 2024-08-12 09:51 | disposition home or self-care (01) ==
LOC: ER 08:21
DX: H10.9 Unspecified conjunctivitis (principal); Z90.710 Acquired absence of both cervix and uterus; Z79.899 Other long term (current) drug therapy
CPT/HCPCS: 82962

== ENCOUNTER 2025-03-27 18:52 | Emergency (ER) | payer MEDICAID ==
[~2025-03-27] VITALS: Ht 160 cm; Wt 77.2 kg
[~2025-03-27 18:52] MED LIST changes: +GENT0.3S10 EACHEYE
[2025-03-27 19:02] VITALS: BP 151/79; PULSE 100; RESP 16; TEMP 98.2; O2SAT 86
--- NOTE | 2025-03-27 19:26 | ED.PDOC ---
Eye-HPI HPI Comments This is a 34 year-old female who presents to the ED with a chief complaint of left lower facial and gum swelling S/P root canal surgery on 03/24/25. Patient reports swelling onset since, with no known alleviating factors. Patient is currently on Amoxicillin following the procedure, but just started with the antibiotics today. Patient states that after taking the antibiotics she has been feeling strange. Patient has no further complaints at this time and otherwise denies throat pain, nasal congestion, cough, N/V/D, fever, or chills. Vital signs were stable on arrival. Chief Complaint: Tooth Pain Time Seen by MD: 19:19 Primary Care Provider: UNKNOWN Reviewed Notes: Nurses Notes, Medications, Allergies Allergies: Coded Allergies: NO KNOWN ALLERGIES (Unverified , 08/14/23) Home Meds Active Scripts Gentamicin Sulfate (Gentamicin Sulfate) 0.3 % Sima, 1 DROP EACHEYE QID PRN for 5 Days, #5 ML Prov:DIANA ZAPATA MD 08/12/24 Clotrimazole (Clotrimazole) 1 % Cre, 1 APPLIC EXT BID for 7 Days, #15 GRAMS Prov:ADÁN KIM 07/22/24 Ondansetron Odt 4MG Tab (ZOFRAN PO) 4 Mg Tb, 4 MG PO Q8HR PRN, #14 TAB ODT TAB-DISSOLVE IN MOUTH, THEN SWALLOW Prov:BARBARA MEADOWS MD 08/14/23 Naproxen (NAPROSYN TABLET) 500 Mg Tb, 1 TAB PO BID PRN, #20 TAB 0 Refills Prov:BARBARA MEADOWS MD 08/14/23 Ciprofloxacin Hcl (Cipro) 500 Mg Tab, 1 TAB PO BID, #14 TAB Prov:BARBARA MEADOWS MD 08/14/23 Information Source: Patient Mode of Arrival: Ambulatory Timing: Days Duration: Since onset Quality: Pain Mouth Location: Left, Lower, Tooth/Teeth Associated signs and symptoms: Tooth Pain Past Medical History PAST MEDICAL HISTORY: Denies Surgical History: Hysterectomy Surgical History (Other): Root Canal Surgery 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 RAIL OPERATOR 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: No Pertinent LIGHT RAIL OPERATOR History Family History Family History: Unknown Social History Smoker: Non-Smoker Alcohol: Occasionally Drugs: Denies Drug Use Lives In: Home Constitutional: denies: chills, diaphoresis, fatigue, fever, malaise, sweats, weakness, others EENTM: reports: mouth pain, others (tooth pain ); denies: blurred vision, double vision, ear bleeding, ear discharge, ear drainage, ear pain, ear ringing, eye pain, eye redness, hearing loss, mouth swelling, nasal discharge, nose bleeding, nose congestion, nose pain, photophobia, tearing, throat pain, throat swelling, voice changes Respiratory: denies: cough, hemoptysis, orthopnea, SOB at rest, shortness of breath, SOB with excertion, stridor, wheezing, others Cardiovascular: denies: chest pain, dizzy spells, diaphoresis, Dyspnea on exertion, edema, irregular heart beat, left arm pain, lightheadedness, palpitations, PND, syncope, others Gastrointestinal: denies: abdomen distended, abdominal pain, blood streaked bowels, constipated, diarrhea, dysphagia, difficulty swallowing, hematemesis, melena, nausea, poor appetite, poor fluid intake, rectal bleeding, rectal pain, vomiting, others Genitourinary: denies: abnormal vagina bleeding, burning, dyspareunia, dysuria, flank pain, frequency, hematuria, incontinence, pain, , vagina discharge, urgency, others Neurological: denies: dizziness, fainting, headache, left sided numbness, left sided weakness, numbness, paresthesia, pre-existing deficit, right sided numbness, right sided weakness, seizure, speech problems, tingling, tremors, weakness, others Musculoskeletal: denies: back pain, gout, joint pain, joint swelling, muscle pain, muscle stiffness, neck pain, others Integumetry: denies: bruises, change in color, change in hair/nails, dryness, laceration, lesions, lumps, rash, wounds, others Allergic/Immunocompromised: denies: Difficulty Healing, Frequent Infections, Hives, Itching, others Hematologic/Lymphatic: denies: anemia, blood clots, easy bleeding, easy bruising, swollen glands, others Endocrine: denies: excessive hunger, excessive sweating, excessive thirst, excessive urination, flushing, intolerance to cold, intolerance to heat, unexplained weight gain, unexplained weight loss, others Psychiatric: denies: anxiety, bipolar disorder, depression, hopeless, panic disorder, schizophrenia, sleepless, suicidal, others All Other Systems: Reviewed and Negative Physical Exam General Appearance: Mild Distress (Moderate distress due to left-sided facial swelling and dental pain concerns.), Obese HEENT: Pharynx Normal, TMs Normal, Other (Patient displays erythema and edema around tooth 18 with swelling extending into the face. No drainage noted.) Neck: Full Range of Motion, Non-Tender, Normal, Normal Inspection Respiratory: Chest Non-Tender, Lungs Clear, No Accessory Muscle Use, No Respiratory Distress, Normal Breath Sounds Cardiovascular: No Edema, No JVD, No Murmur, No Gallop, Normal Peripheral Pulses, Regular Rate/Rhythm Breast Exam: Deferred Gastrointestinal: No Organomegaly, Non Tender, No Pulsatile Mass, Normal Bowel Sounds, Soft Genitalia: Deferred Pelvic: Deferred Rectal: Deferred Extremities: No calf tenderness, Normal capillary refill, Normal inspection, Normal range of motion, Non-tender, No pedal edema Neurologic: Alert, No Motor Deficits, Normal Affect, Normal Mood, No Sensory Deficits Cerebellar Function: NOT DONE Reflexes: NOT DONE Skin: Dry, Normal Color, Warm Lymphatic: No Adenopathy Was a procedure done? Was a procedure done?: No EENT DIFF Eye: N/A Mouth: Other (Pain status post procedure, dental abscess, dental infection) X-Ray, Labs, Meds, VS Vital Signs Date Time Temp Pulse Resp B/P (MAP) Pulse Ox O2 Delivery O2 Flow Rate FiO2 03/27/25 19:02 98.2 100 16 151/79 86 98.2 X-Ray, Labs, Meds, VS Comment Spent time discussing the patient's concerns with her. Advised that I will change her antibiotic therapy as well as pain medication. Patient should maintain follow up appointments with her doctor as scheduled. Images Reviewed?: Images reviewed and evaluated by me Time of 1ST Reevaluation: 19:33 Reevaluation 1ST: Unchanged Consultation: PCP, Other (Dentist) Patient Education/Counseling: Diagnosis, Treatment Family Education/Counseling: Diagnosis, Treatment, No Family Present Medical Screening: No EMC Exist At This Time SEPSIS Sepsis Screen Date sepsis recognized/suspect: Mar 27, 2025 Time Sepsis recognized/suspect: 1901 Recent Procedure: No On Antibiotic Therapy: No Respiratory Rate >20: No Heart Rate >90: No Temp<36 C (96.8 F) or >38.3 C: No SBP <90 or MAP <65 mmHG: No New Acute Mental Status Change: No Is the patient on CPAP, BIPAP,: No Vital Signs Date Time Temp Pulse Resp B/P (MAP) Pulse Ox O2 Delivery O2 Flow Rate FiO2 03/27/25 19:02 98.2 100 16 151/79 86 98.2 Departure 1 Departure Time of Disposition: 19:33 Impression: Primary Impression: Dental infection Disposition: HOME / SELF CARE / HOMELESS Condition: Stable Additional Instructions: Advised patient utilize medication as directed until completion as well as pain medication as needed. Patient should maintain all follow up appointments with the dentist as scheduled. e-Prescriptions Tramadol Hcl (Tramadol Hcl) 50 Mg Tab 50 MG PO Q8HP PRN, #10 TAB Prov: VÍCTOR BROOKS PAC 03/27/25 Clindamycin Hcl (Clindamycin Hcl) 300 Mg Cap 1 CAP PO TID for 7 Days, #21 CAP Prov: VÍCTOR BROOKS PAC 03/27/25 Discharged With: Self, Friend Critical Care Note Critical Care Time?: No Stability Stability form required: No Heart Score Heart Score: Heart Score Response (Comments) Value History N/A 0 EKG N/A 0 Age N/A 0 Risk Factors N/A 0 Troponin N/A 0 Total 0 I personally scribed for VÍCTOR BROOKS PAC ([email or web address]) on 03/27/25 at 19:26. Electronically submitted by [email or web address]). VÍCTOR BROOKS PAC Mar 27, 2025 19:26
[2025-03-27] MEDS ORDERED: CLIN1CAP70 PO (19:34)
[2025-03-27] MEDS ORDERED: TRAM50TA2 PO (19:34)
== END 2025-03-27 22:30 | disposition home or self-care (01) ==
LOC: ER 18:56
DX: K04.7 Periapical abscess without sinus (principal); Z90.710 Acquired absence of both cervix and uterus; Z98.890 Other specified postprocedural states